=== PATIENT | female | born 1980 | race Caucasian/White ===

== ENCOUNTER 2016-12-23 22:37 | Emergency (ER) | payer OTHER ==
[~2016-12-23 22:37] MED LIST: ACCUNEB INH; ADDER10 PO; ADDERALL20 MG PO; ADVAIR250 INH; ALBUTEROL NEB; FLONASE NAS; LEVAQUIN750 MG PO; LEVOTHYROXIN25 MCG PO; MIRALAXPKT PO; MUCINEX600 MG PO; PREM625 PO; PRILOSEC40 MG PO; PROAIR HFA INH; PROVENTSOL INH; SINGULAIR1 PO; STERAPRED DS10 MG; SYMBICORT 160/41 INH INH; SYN.025B PO; TUMSROLL PO; VITD PO; XOPENEX1.25 MG/3 INH
[2016-12-23 22:46] LABS: WBC (NOT ORDERED) (RFLEX) 0 (0-5)
[2016-12-23 22:52] LABS: BASOPHILS 0.5 %; BASOPHILS ABSOLUTE 0.03 10/3/uL (0.0-0.16); EOSINOPHILS 2.4 %; EOSINOPHILS ABSOLUTE 0.15 10/3/uL (0.0-0.53); ER CBC TAT 0 Hrs 08 Mins; HEMOGLOBIN 15.5 g/dL (12.0-16.0); LYMPHOCYTES 37.6 %; LYMPHOCYTES ABSOLUTE 2.37 10/3/uL (0.67-4.30); MEAN CORPUS HGB CONC 35.2 g/dL (32.0-36.0); MEAN CORPUSCULAR HEMOGLOB 31.8 pg (26.0-34.0); MEAN CORPUSCULAR VOLUME 90.2 fL (80-100); MEAN PLATELET VOLUME 10.2 fL (9.2-13.0); MONOCYTES 5.4 %; MONOCYTES ABSOLUTE 0.34 10/3/uL (0.21-1.20); NEUTROPHILS 54.1 %; NEUTROPHILS ABSOLUTE 3.41 10/3/uL (2.02-8.40); PLATELET COUNT 267 10/3/uL (150-400); RBC DISTRIBUTION WIDTH 12.3 % (12.0-16.0); RED CELL COUNT 4.88 10/6/uL (4.0-5.6); WHITE BLOOD CELLS 6.3 10/3/uL (4.5-10.5)
[2016-12-23 22:53] LABS: ASCORBIC ACID (UR NOT ORDER) 20 (NEG); BILIRUBIN, URINE NEGATIVE (NEG); ER URINALYSIS TAT 0 Hrs 09 Mins; KETONE, URINE NEGATIVE (NEG); LEUKOCYTE ESTERASE(NOT OR NEG (NEG); NITRITE (URINE) NEG (NEG)
[2016-12-23 22:54] LABS: MANUAL DIFF NO %
[2016-12-23 23:05] LABS: A/G RATIO 1.1 (0.7-1.9); ALBUMIN 3.8 G/DL (3.5-5.0); ALKALINE PHOSPHATASE 71 U/L (45-117); BUN (BLOOD UREA NITROGEN) 13 MG/DL (6-23); CALCIUM, SERUM 8.8 MG/DL (8.5-10.4); CHLORIDE, SERUM 108 MMOL/L (96-112); CO2 (CARBON DIOXIDE) 30 MMOL/L (24-34); CREATININE 0.97 MG/DL (0.55-1.02); GFR AFRICAN AMERICAN 86 ML/MIN (>=60); GFR NON AFRICAN AMERICAN 75 ML/MIN (>=60); GLOBULIN 3.6 G/DL (2.5-4.1); GLUCOSE, SERUM 78 MG/DL (60-99); SGPT(ALT) 68 U/L (5-65); SODIUM, SERUM 142 MMOL/L (135-148); TOTAL BILIRUBIN 0.4 MG/DL (0-1.2); TOTAL PROTEIN 7.4 G/DL (6.0-8.5)
[2016-12-23 23:07] LABS: POTASSIUM, SERUM 4.8 MMOL/L (3.5-5.3); SGOT(AST) 41 U/L (5-40)
== END 2016-12-24 00:34 | disposition home or self-care (01) ==
LOC: ER 22:37
PROVIDERS: Nurse Practitioner Acute Care
DX: M25.511 Pain in right shoulder (principal); R10.13 Epigastric pain; Z87.891 Personal history of nicotine dependence; J45.909 Unspecified asthma, uncomplicated; E11.9 Type 2 diabetes mellitus without complications; Z85.41 Personal history of malignant neoplasm of cervix uteri; Z90.710 Acquired absence of both cervix and uterus; Z90.49 Acquired absence of other specified parts of digestive tract; F90.9 Attention-deficit hyperactivity disorder, unspecified type; Z88.1 Allergy status to other antibiotic agents; Z79.899 Other long term (current) drug therapy; Z79.52 Long term (current) use of systemic steroids
CPT/HCPCS: 74176; 80053; 81001; 83690; 84703; 85025; 99284